=== PATIENT | female | born 1940 | race Caucasian/White ===

== ENCOUNTER 2016-08-05 18:33 | Emergency (ER) | payer OTHER ==
[~2016-08-05] VITALS: Ht 167.6 cm; Wt 88.8 kg
[~2016-08-05 18:33] MED LIST: ACETAMINOPHEN650 M2 PO; AMARYL4 MG PO; ASPIR-LOW81 MG PO; ASPIRIN81 M1 PO; BUMEX1 MG PO; CEPHALEXIN500 MG PO; COLCRYS0.6 MG PO; COUMADIN2 MG PO; CYMBALTA30 MG PO; CYMBALTA60 MG PO; Colchicine,Colcrys PO; DIOVAN HCT 11 TABLET PO; GLIMEPIRIDE4 MG PO; Glucophage PO; JANUVIA100 MG PO; KLOR-CON 1010 ME1 PO; LIDOCAINE700 MG TD; LOVENOX100 MG/1 M SQ; METFORMIN HCL500 M1 PO; METFORMIN HCL500 MG PO; OMEPRAZOLE20 MG PO; POTASSIUM CHLO10 ME3 PO; PRILOSEC20 MG PO; PROMETHAZINE HC25 M1 PO; SPIRIVA1 INHALATI IH; TRAMADOL HCL50 MG PO; TYLENOL WITH C1 EACH PO; WELCHOL625 MG PO; XANAX0.25 MG PO; ZYLOPRIM100 MG PO; predniSONE PO
[2016-08-05 19:41] LABS: MCH 29.6 PG (29.0-34.0); MCHC 32.1 G/DL (30.0-36.0); MCV 92.2 FL (83-99); MEAN PLAT.VOLUME 11.5 uM^3 (9.5-12.4); PLATELET COUNT 259 K/uL (156-360); RBC DIS.WIDTH-CV 16.4 % (11.8-14.6); RBC DIS.WIDTH-SD 52.9 % (39-53); RED BLOOD COUNT 4.12 M/uL (3.80-5.20); WHITE BLOOD COUNT 8.6 K/uL (4.1-10.2)
[2016-08-05 19:49] LABS: CHLORIDE 103 mEq/L (99-109); POTASSIUM 4.5 mEq/L (3.7-5.4); SODIUM 138 mEq/L (136-147)
[2016-08-05 19:51] LABS: GLUCOSE 253 mg/dL (70-99)
[2016-08-05 19:53] LABS: ANION GAP 12 MEQ/L (2-14); TOTAL BILIRUBIN 0.3 mg/dL (0.0-1.0)
[2016-08-05 19:55] LABS: ALKALINE PHOSPHATASE 104 IU/L (3-129); GFR ESTIMATE (CALCULATED) 29 mL/min/
[2016-08-05 19:56] LABS: UREA NITROGEN (BUN) 44 mg/dL (9-23)
[2016-08-05 21:14] LABS: DIRECT BILIRUBIN 0.1 mg/dL (0.0-0.3)
[2016-08-05 21:40] LABS: PROTHROMBIN TIME 20.8 (9.2-11.2); PTT 33.4 (25-32)
[2016-08-06 00:07] LABS: ADD MIUA? YES; BILIRUBIN NEGATIVE; BLOOD NEGATIVE; COLOR YELLOW ((YELLOW)); GLUCOSE (STRIP) NEGATIVE; KETONES NEGATIVE; LEUKOCYTES SMALL; NITRITE NEGATIVE; PROTEIN (STRIP) 30; SPECIFIC GRAVITY 1.017 (1.000-1.030); UROBILINOGEN 0.2 MG/DL (0.2-1.0)
[2016-08-06 00:21] LABS: BACTERIA RARE /HPF; EPITHELIAL CELLS RARE /HPF; HYALINE CASTS 0-5 /LPF; MUCUS TRACE /LPF; RED BLOOD CELLS 0-5 /HPF (0-5); UCUL ADDED? NO
[2016-08-06] MEDS ORDERED: TYLENOL WITH C1 EACH PO (00:44)
[2016-08-06] MEDS ORDERED: ZOFRAN ODT4 MG PO (00:44)
[2016-08-06 01:02] VITALS: BP 149/79
== END 2016-08-06 01:28 | disposition home or self-care (01) ==
LOC: EME 18:33
PROVIDERS: Physician Assistant
DX: R10.11 Right upper quadrant pain (principal); S30.1XXA Contusion of abdominal wall, initial encounter; E11.9 Type 2 diabetes mellitus without complications; E78.5 Hyperlipidemia, unspecified; W06.XXXA Fall from bed, initial encounter; Z79.01 Long term (current) use of anticoagulants; Z95.0 Presence of cardiac pacemaker; Z79.84 Long term (current) use of oral hypoglycemic drugs; Z88.2 Allergy status to sulfonamides; Z88.6 Allergy status to analgesic agent; Z87.891 Personal history of nicotine dependence
CPT/HCPCS: 71250; 74176; 80053; 81003; 82248; 85027; 85610; 85730; 99281; 99285; J2405; J3010

== ENCOUNTER 2017-09-21 16:57 | Inpatient (IN) | payer OTHER ==
[~2017-09-21] VITALS: Ht 167.6 cm; Wt 84.0 kg
[~2017-09-21 16:57] MED LIST changes: +ZOFRAN ODT4 MG PO
[2017-09-21 18:07] LABS: HEMOGLOBIN 12.8 G/DL (11.9-15.5); MCH 30.2 PG (29.0-34.0); MCHC 32.8 G/DL (30.0-36.0); PLATELET COUNT 250 K/uL (156-360); RBC DIS.WIDTH-CV 15.1 % (11.8-14.6); RBC DIS.WIDTH-SD 51.2 % (39-53); RED BLOOD COUNT 4.24 M/uL (3.80-5.20); WHITE BLOOD COUNT 8.4 K/uL (4.1-10.2)
[2017-09-21 18:13] LABS: INTER. NORMALIZED RATIO 2.8
[2017-09-21 18:15] LABS: PTT 35.6 SEC (25-37)
[2017-09-21 18:19] LABS: ALBUMIN 3.8 g/dL (3.2-4.8)
[2017-09-21 18:20] LABS: CHLORIDE 103 mEq/L (99-109); POTASSIUM 5.6 mEq/L (3.7-5.4); SODIUM 137 mEq/L (136-147)
[2017-09-21 18:22] LABS: GLUCOSE 228 mg/dL (70-99); TOTAL PROTEIN 6.5 g/dL (6.4-8.3)
[2017-09-21 18:24] LABS: TOTAL BILIRUBIN 0.3 mg/dL (0.0-1.0)
[2017-09-21 18:25] LABS: ALKALINE PHOSPHATASE 116 IU/L (3-129)
[2017-09-21 18:26] LABS: CREATININE 1.7 mg/dL (0.6-1.3); GFR ESTIMATE (CALCULATED) 31 mL/min/
[2017-09-21 18:27] LABS: AST (GOT) 17 IU/L (2-34); UREA NITROGEN (BUN) 54 mg/dL (9-23)
[2017-09-21 18:28] LABS: ALT (GPT) 16 IU/L (3-49)
[2017-09-21 18:32] LABS: TROP-I INTERPRETATION NEGATIVE; TROPONIN-I 0.05 ng/mL (0.0-0.30)
[2017-09-21] MEDS ORDERED: FLEXERIL10 MG PO (18:34)
[2017-09-21] MEDS ORDERED: LEVAQUIN750 MG PO (18:35)
[2017-09-21 20:25] LABS: APPEARANCE SL.HAZY ((CLEAR)); BILIRUBIN NEGATIVE; BLOOD NEGATIVE; COLOR YELLOW ((YELLOW)); GLUCOSE (STRIP) NEGATIVE; KETONES NEGATIVE; LEUKOCYTES NEGATIVE; NITRITE NEGATIVE; PROTEIN (STRIP) 100; SPECIFIC GRAVITY 1.016 (1.000-1.030); UROBILINOGEN 0.2 MG/DL (0.2-1.0)
[2017-09-21 20:37] LABS: BACTERIA RARE /HPF; EPITHELIAL CELLS RARE /HPF; MUCUS TRACE /LPF; RED BLOOD CELLS NONE SEEN /HPF (0-5); UCUL ADDED? NO; WHITE BLOOD CELLS 0-5 /HPF (0-5)
[2017-09-21] MEDS ORDERED: ALPRAZOLAM0.25 M2 PO (22:27)
[2017-09-21] MEDS ORDERED: ACETAMINOPHEN-1 EAC1 PO (22:29)
[2017-09-21] MEDS ORDERED: TYLENOL EXTRA500 MG PO (22:30)
[2017-09-21] MEDS ORDERED: HYDROCHLOROTH12.5 M3 PO (22:32)
[2017-09-21] MEDS ORDERED: METOPROLOL TART25 MG PO (22:32)
[2017-09-21] MEDS ORDERED: DULERA 200 MCG/13 GM IH (22:33)
[2017-09-21] MEDS ORDERED: DIOVAN80 MG PO (22:33)
[2017-09-21] MEDS ORDERED: LEVEMIR FL100 UNIT/1 SC (22:36)
[2017-09-22] VITALS (7 sets, daily range): BP systolic 138–195; BP diastolic 70–82
[2017-09-22 05:17] LABS: HEMATOCRIT 34.3 % (36.0-46.0); HEMOGLOBIN 10.9 G/DL (11.9-15.5); MCH 29.4 PG (29.0-34.0); MCHC 31.8 G/DL (30.0-36.0); MCV 92.5 FL (83-99); PLATELET COUNT 213 K/uL (156-360); RBC DIS.WIDTH-CV 15.1 % (11.8-14.6); RBC DIS.WIDTH-SD 51.8 % (39-53); RED BLOOD COUNT 3.71 M/uL (3.80-5.20); WHITE BLOOD COUNT 7.8 K/uL (4.1-10.2)
[2017-09-22 05:32] LABS: INTER. NORMALIZED RATIO 2.7
[2017-09-22 05:37] LABS: CHLORIDE 104 MEQ/L (99-109); CREATININE 1.5 MG/DL (0.6-1.3); GFR ESTIMATE (CALCULATED) 36 mL/min/; GLUCOSE 236 mg/dL (70-99); SODIUM 135 MEQ/L (136-147); UREA NITROGEN (BUN) 49 mg/dL (9-23)
[2017-09-22] MEDS ORDERED: DIOVAN320 MG PO (13:17)
== END 2017-09-22 18:42 | disposition home or self-care (01) | DRG 309 ==
LOC: EME 16:57 → EDOF 23:09 → 4EAST 23:09 → ENRESERV 23:12 → 4EAST 09-22 01:06
PROVIDERS: Emergency Medicine Emergency Medical Services; Hospitalist
DX: I48.1 Persistent atrial fibrillation (principal); I50.32 Chronic diastolic (congestive) heart failure; S39.012A Strain of muscle, fascia and tendon of lower back, initial encounter; E11.22 Type 2 diabetes mellitus with diabetic chronic kidney disease; E11.42 Type 2 diabetes mellitus with diabetic polyneuropathy; Z95.0 Presence of cardiac pacemaker; I13.0 Hypertensive heart and chronic kidney disease with heart failure and stage 1 through stage 4 chronic kidney disease, or unspecified chronic kidney disease; E87.5 Hyperkalemia; I09.9 Rheumatic heart disease, unspecified; I49.5 Sick sinus syndrome; I49.3 Ventricular premature depolarization; M10.9 Gout, unspecified; G47.30 Sleep apnea, unspecified; E78.5 Hyperlipidemia, unspecified; M46.90 Unspecified inflammatory spondylopathy, site unspecified; Z79.4 Long term (current) use of insulin; Z79.899 Other long term (current) drug therapy; Z82.3 Family history of stroke; Z87.891 Personal history of nicotine dependence; Z90.710 Acquired absence of both cervix and uterus; Z95.2 Presence of prosthetic heart valve; Z79.01 Long term (current) use of anticoagulants; Z90.49 Acquired absence of other specified parts of digestive tract; Z74.01 Bed confinement status; J43.9 Emphysema, unspecified; K21.9 Gastro-esophageal reflux disease without esophagitis; N18.3 Chronic kidney disease, stage 3 (moderate)
CPT/HCPCS: 71045; 72100; 80048; 80053; 81003; 82948; 84484; 85027; 85610; 85730; 86850; 86900; 86901; 93005; 94640; 99281; 99285; J0360; J1815; J3475; J7040

== ENCOUNTER 2017-10-31 08:20 | Emergency (ER) | payer OTHER ==
[~2017-10-31] VITALS: Ht 168.9 cm; Wt 79.1 kg
[~2017-10-31 08:20] MED LIST changes: +ACETAMINOPHEN-1 EAC1 PO; +ALPRAZOLAM0.25 M2 PO; +DIOVAN320 MG PO; +DIOVAN80 MG PO; +DULERA 200 MCG/13 GM IH; +FLEXERIL10 MG PO; +HYDROCHLOROTH12.5 M3 PO; +LEVAQUIN750 MG PO; +LEVEMIR FL100 UNIT/1 SC; +METOPROLOL TART25 MG PO; +TYLENOL EXTRA500 MG PO
[2017-10-31 09:53] LABS: BASOPHIL (%) 0.5 % (0-1); BASOPHIL COUNT 0.1 K/uL (0-0.1); EOSINOPHIL (%) 1.4 % (0-5); EOSINOPHIL COUNT 0.2 K/uL (0-0.3); HEMATOCRIT 38.9 % (36.0-46.0); IMMATURE GRANULOCYTE (%) 0.6 % (0.0-0.7); LYMPHOCYTE (%) 8.1 % (15-42); LYMPHOCYTE COUNT 0.9 K/uL (1.0-2.8); MCH 29.9 PG (29.0-34.0); MCHC 33.4 G/DL (30.0-36.0); MCV 89.4 FL (83-99); MONOCYTE (%) 9.3 % (3-12); NEUTROPHIL (%) 80.1 % (45-76); NEUTROPHIL COUNT 8.5 K/uL (1.8-6.4); PLATELET COUNT 210 K/uL (156-360); RBC DIS.WIDTH-CV 15.4 % (11.8-14.6); RBC DIS.WIDTH-SD 50.4 % (39-53); RED BLOOD COUNT 4.35 M/uL (3.80-5.20); WHITE BLOOD COUNT 10.6 K/uL (4.1-10.2)
[2017-10-31 10:05] LABS: CHLORIDE 100 mEq/L (99-109); POTASSIUM 4.1 mEq/L (3.7-5.4); SODIUM 139 mEq/L (136-147)
[2017-10-31 10:07] LABS: GLUCOSE 266 mg/dL (70-99)
[2017-10-31 10:11] LABS: CREATININE 1.6 mg/dL (0.6-1.3); GFR ESTIMATE (CALCULATED) 33 mL/min/
[2017-10-31 10:12] LABS: UREA NITROGEN (BUN) 33 mg/dL (9-23)
[2017-10-31] MEDS ORDERED: ZOFRAN4 MG PO (13:26)
[2017-10-31] MEDS ORDERED: CITRATE OF MAG296 ML PO (13:26)
[2017-10-31 14:15] VITALS: BP 184/81
== END 2017-10-31 14:15 | disposition home or self-care (01) ==
LOC: EME 08:20
PROVIDERS: Emergency Medicine
DX: K59.00 Constipation, unspecified (principal); R10.9 Unspecified abdominal pain; G89.29 Other chronic pain; E78.5 Hyperlipidemia, unspecified; F41.9 Anxiety disorder, unspecified; I11.0 Hypertensive heart disease with heart failure; I50.9 Heart failure, unspecified; J44.9 Chronic obstructive pulmonary disease, unspecified; K21.9 Gastro-esophageal reflux disease without esophagitis; E11.42 Type 2 diabetes mellitus with diabetic polyneuropathy; Z95.0 Presence of cardiac pacemaker; Z95.2 Presence of prosthetic heart valve; Z88.2 Allergy status to sulfonamides; Z87.891 Personal history of nicotine dependence; Z88.8 Allergy status to other drugs, medicaments and biological substances; Z79.4 Long term (current) use of insulin
CPT/HCPCS: 74019; 80048; 85025; 99281; 99285

== ENCOUNTER 2017-12-04 15:49 | Inpatient (IN) | payer OTHER ==
[~2017-12-04] VITALS: Ht 200.7 cm; Wt 79.9 kg
[~2017-12-04 15:49] MED LIST changes: +CITRATE OF MAG296 ML PO; +ZOFRAN4 MG PO
[2017-12-04 16:37] LABS: HEMATOCRIT 36.8 % (36.0-46.0); HEMOGLOBIN 12.4 G/DL (11.9-15.5); MCH 30.5 PG (29.0-34.0); MCHC 33.7 G/DL (30.0-36.0); MCV 90.4 FL (83-99); PLATELET COUNT 224 K/uL (156-360); RBC DIS.WIDTH-CV 15.9 % (11.8-14.6); RBC DIS.WIDTH-SD 52.4 % (39-53); RED BLOOD COUNT 4.07 M/uL (3.80-5.20); WHITE BLOOD COUNT 8.1 K/uL (4.1-10.2)
[2017-12-04 16:43] LABS: INTER. NORMALIZED RATIO 3.8
[2017-12-04 16:45] LABS: ALBUMIN 3.7 g/dL (3.2-4.8); CHLORIDE 99 mEq/L (99-109); POTASSIUM 4.6 mEq/L (3.7-5.4); PTT 44.1 SEC (25-37); SODIUM 136 mEq/L (136-147)
[2017-12-04 16:47] LABS: GLUCOSE 341 mg/dL (70-99); TOTAL PROTEIN 6.7 g/dL (6.4-8.3)
[2017-12-04 16:49] LABS: TOTAL BILIRUBIN 0.6 mg/dL (0.0-1.0)
[2017-12-04 16:51] LABS: ALKALINE PHOSPHATASE 115 IU/L (3-129); CREATININE 1.9 mg/dL (0.6-1.3); GFR ESTIMATE (CALCULATED) 27 mL/min/
[2017-12-04 16:52] LABS: UREA NITROGEN (BUN) 44 mg/dL (9-23)
[2017-12-04 16:53] LABS: AST (GOT) 19 IU/L (2-34)
[2017-12-04 16:54] LABS: ALT (GPT) 15 IU/L (3-49); LIPASE 19 U/L (1.0-51.0)
[2017-12-04 17:51] LABS: APPEARANCE SL.HAZY ((CLEAR)); BILIRUBIN NEGATIVE; BLOOD NEGATIVE; COLOR YELLOW ((YELLOW)); GLUCOSE (STRIP) 150; KETONES NEGATIVE; LEUKOCYTES TRACE; NITRITE NEGATIVE; PROTEIN (STRIP) 100; SPECIFIC GRAVITY 1.016 (1.000-1.030); UROBILINOGEN 0.2 MG/DL (0.2-1.0)
[2017-12-04 17:58] LABS: BACTERIA RARE /HPF; EPITHELIAL CELLS 1+ /HPF; MUCUS TRACE /LPF; RED BLOOD CELLS NONE SEEN /HPF (0-5); UCUL ADDED? NO; WHITE BLOOD CELLS 0-5 /HPF (0-5)
[2017-12-04] MEDS ORDERED: DIOVAN320 MG PO (20:01)
[2017-12-04] MEDS ORDERED: ULTRAM50 MG PO (20:02)
[2017-12-04] MEDS ORDERED: METAMUCIL0.4 GM PO (20:03)
[2017-12-04 22:35] VITALS: BP 185/74
[2017-12-05] VITALS (7 sets, daily range): BP systolic 139–171; BP diastolic 62–74
[2017-12-05 00:40] LABS: HEMATOCRIT 32.3 % (36.0-46.0); HEMOGLOBIN 10.5 G/DL (11.9-15.5); MCV 92.8 FL (83-99)
[2017-12-05 06:50] LABS: HEMOGLOBIN 10.1 G/DL (11.9-15.5); MCH 28.9 PG (29.0-34.0); MCHC 31.6 G/DL (30.0-36.0); MCV 91.7 FL (83-99); PLATELET COUNT 175 K/uL (156-360); RBC DIS.WIDTH-CV 15.9 % (11.8-14.6); RBC DIS.WIDTH-SD 53.1 % (39-53); RED BLOOD COUNT 3.49 M/uL (3.80-5.20); WHITE BLOOD COUNT 6.1 K/uL (4.1-10.2)
[2017-12-05 06:56] LABS: INTER. NORMALIZED RATIO 3.5
[2017-12-05 07:19] LABS: PTT 157.1 SEC (25-37)
[2017-12-05 09:39] LABS: CHLORIDE 105 MEQ/L (99-109); CREATININE 1.5 MG/DL (0.6-1.3); GFR ESTIMATE (CALCULATED) 36 mL/min/; GLUCOSE 200 mg/dL (70-99); POTASSIUM 5.6 MEQ/L (3.7-5.4); SODIUM 138 MEQ/L (136-147); UREA NITROGEN (BUN) 36 mg/dL (9-23)
[2017-12-05 13:04] LABS: HEMATOCRIT 34.7 % (36.0-46.0); HEMOGLOBIN 11.2 G/DL (11.9-15.5); MCV 91.8 FL (83-99)
[2017-12-05 13:10] LABS: INTER. NORMALIZED RATIO 2.9
[2017-12-05 13:38] LABS: PTT 38.1 SEC (25-37)
[2017-12-05 17:47] LABS: HEMATOCRIT 34.6 % (36.0-46.0); MCV 90.8 FL (83-99)
[2017-12-06 03:55] VITALS: BP 174/75
[2017-12-06 07:33] VITALS: BP 181/81
[2017-12-06 12:19] VITALS: BP 178/75
[2017-12-06 13:59] LABS: INTER. NORMALIZED RATIO 2.6
[2017-12-06 14:08] LABS: PTT 77.9 SEC (25-37)
[2017-12-06 16:36] VITALS: BP 167/74
[2017-12-06 18:13] VITALS: BP 195/79
[2017-12-06 23:52] VITALS: BP 164/73
[2017-12-07 07:17] LABS: BASOPHIL (%) 0.4 % (0-1); EOSINOPHIL (%) 3.9 % (0-5); EOSINOPHIL COUNT 0.3 K/uL (0-0.3); HEMATOCRIT 31.3 % (36.0-46.0); HEMOGLOBIN 10.5 G/DL (11.9-15.5); IMMATURE GRANULOCYTE (%) 0.6 % (0.0-0.7); LYMPHOCYTE (%) 12.7 % (15-42); LYMPHOCYTE COUNT 0.9 K/uL (1.0-2.8); MCHC 33.5 G/DL (30.0-36.0); MCV 89.4 FL (83-99); MONOCYTE (%) 10.3 % (3-12); MONOCYTE COUNT 0.7 K/uL (0-0.8); NEUTROPHIL (%) 72.1 % (45-76); NEUTROPHIL COUNT 4.8 K/uL (1.8-6.4); PLATELET COUNT 176 K/uL (156-360); RBC DIS.WIDTH-CV 15.9 % (11.8-14.6); WHITE BLOOD COUNT 6.7 K/uL (4.1-10.2)
[2017-12-07 07:39] LABS: INTER. NORMALIZED RATIO 2.1
[2017-12-07 07:40] VITALS: BP 187/111
[2017-12-07 07:41] LABS: PTT 53.9 SEC (25-37)
[2017-12-07 09:52] LABS: ALBUMIN 3.2 G/DL (3.2-4.8); CHLORIDE 100 MEQ/L (99-109); CREATININE 1.3 MG/DL (0.6-1.3); GFR ESTIMATE (CALCULATED) 42 mL/min/; GLUCOSE 180 mg/dL (70-99); PHOSPHORUS 3.5 mg/dL (2.5-4.9); POTASSIUM 3.9 MEQ/L (3.7-5.4); SODIUM 138 MEQ/L (136-147); UREA NITROGEN (BUN) 20 mg/dL (9-23)
[2017-12-07 10:35] VITALS: BP 155/70
[2017-12-07 12:06] LABS: HEMOGLOBIN A1c (GLYCOHEMOGLOB) 9.3 % (Below 5.7)
[2017-12-07 13:00] LABS: PTT 64.1 SEC (25-37)
[2017-12-07 19:32] VITALS: BP 150/65
[2017-12-07 20:26] LABS: INTER. NORMALIZED RATIO 1.8
[2017-12-07 20:33] LABS: PTT 33.1 SEC (25-37)
[2017-12-07 23:14] VITALS: BP 159/65
[2017-12-08 03:08] LABS: BASOPHIL (%) 0.2 % (0-1); EOSINOPHIL (%) 4.6 % (0-5); EOSINOPHIL COUNT 0.3 K/uL (0-0.3); HEMATOCRIT 29.2 % (36.0-46.0); IMMATURE GRANULOCYTE (%) 0.5 % (0.0-0.7); LYMPHOCYTE (%) 16.8 % (15-42); MCH 30.6 PG (29.0-34.0); MCHC 34.2 G/DL (30.0-36.0); MCV 89.3 FL (83-99); MONOCYTE (%) 16.1 % (3-12); MONOCYTE COUNT 0.9 K/uL (0-0.8); NEUTROPHIL (%) 61.8 % (45-76); NEUTROPHIL COUNT 3.6 K/uL (1.8-6.4); PLATELET COUNT 150 K/uL (156-360); RBC DIS.WIDTH-CV 15.9 % (11.8-14.6); RBC DIS.WIDTH-SD 51.6 % (39-53); RED BLOOD COUNT 3.27 M/uL (3.80-5.20); WHITE BLOOD COUNT 5.9 K/uL (4.1-10.2)
[2017-12-08 03:32] LABS: PTT 234.2 SEC (25-37)
[2017-12-08 03:33] LABS: ALBUMIN 2.8 g/dL (3.2-4.8)
[2017-12-08 03:34] LABS: CHLORIDE 103 mEq/L (99-109); POTASSIUM 3.3 mEq/L (3.7-5.4); SODIUM 139 mEq/L (136-147)
[2017-12-08 03:36] LABS: GLUCOSE 181 mg/dL (70-99)
[2017-12-08 03:37] LABS: TOTAL PROTEIN 5.2 g/dL (6.4-8.3)
[2017-12-08 03:38] LABS: TOTAL BILIRUBIN 0.7 mg/dL (0.0-1.0)
[2017-12-08 03:39] LABS: ALKALINE PHOSPHATASE 86 IU/L (3-129)
[2017-12-08 03:40] VITALS: BP 119/57; BP 166/72
[2017-12-08 03:40] LABS: CREATININE 1.5 mg/dL (0.6-1.3); GFR ESTIMATE (CALCULATED) 36 mL/min/
[2017-12-08 03:41] LABS: AST (GOT) 19 IU/L (2-34); UREA NITROGEN (BUN) 19 mg/dL (9-23)
[2017-12-08 03:42] LABS: ALT (GPT) 12 IU/L (3-49)
[2017-12-08 07:24] VITALS: BP 187/82
[2017-12-08 13:45] VITALS: BP 157/68
[2017-12-08 13:46] VITALS: BP 157/60
[2017-12-08 15:33] VITALS: BP 157/66
[2017-12-08 15:52] LABS: INTER. NORMALIZED RATIO 1.6
[2017-12-08 15:57] LABS: PTT 51.7 SEC (25-37)
[2017-12-08 20:13] VITALS: BP 162/80
[2017-12-09] VITALS (7 sets, daily range): BP systolic 139–168; BP diastolic 60–74
[2017-12-09 07:15] LABS: INTER. NORMALIZED RATIO 1.5
[2017-12-09 07:17] LABS: PTT 62.2 SEC (25-37)
[2017-12-09 07:20] LABS: HEMATOCRIT 29.6 % (36.0-46.0); HEMOGLOBIN 9.3 G/DL (11.9-15.5); MCHC 31.4 G/DL (30.0-36.0); PLATELET COUNT 136 K/uL (156-360); RBC DIS.WIDTH-CV 16.5 % (11.8-14.6); RBC DIS.WIDTH-SD 57.1 % (39-53); WHITE BLOOD COUNT 5.5 K/uL (4.1-10.2)
[2017-12-09 07:26] LABS: MCV 95.5 FL (83-99)
[2017-12-09 07:28] LABS: CHLORIDE 105 MEQ/L (99-109); CREATININE 1.4 MG/DL (0.6-1.3); GFR ESTIMATE (CALCULATED) 39 mL/min/; GLUCOSE 208 mg/dL (70-99); POTASSIUM 4.2 MEQ/L (3.7-5.4); SODIUM 137 MEQ/L (136-147); UREA NITROGEN (BUN) 20 mg/dL (9-23)
[2017-12-09] MEDS ORDERED: LOVENOX80 MG/0.8 SC (14:03)
[2017-12-10 03:56] VITALS: BP 149/72
[2017-12-10 06:05] LABS: HEMATOCRIT 30.6 % (36.0-46.0); HEMOGLOBIN 9.8 G/DL (11.9-15.5); MCV 93.6 FL (83-99); PLATELET COUNT 164 K/uL (156-360); RBC DIS.WIDTH-CV 16.4 % (11.8-14.6); RBC DIS.WIDTH-SD 56.1 % (39-53); RED BLOOD COUNT 3.27 M/uL (3.80-5.20); WHITE BLOOD COUNT 7.1 K/uL (4.1-10.2)
[2017-12-10 06:14] LABS: INTER. NORMALIZED RATIO 1.6
[2017-12-10 06:18] LABS: PTT 34.6 SEC (25-37)
[2017-12-10 06:34] LABS: CHLORIDE 100 MEQ/L (99-109); CREATININE 1.6 MG/DL (0.6-1.3); GFR ESTIMATE (CALCULATED) 33 mL/min/; GLUCOSE 153 mg/dL (70-99); POTASSIUM 4.7 MEQ/L (3.7-5.4); SODIUM 136 MEQ/L (136-147); UREA NITROGEN (BUN) 26 mg/dL (9-23)
[2017-12-10 07:21] VITALS: BP 149/64
[2017-12-10] MEDS ORDERED: LOVENOX80 MG/0.8 SC (11:26)
[2017-12-10] MEDS ORDERED: ANUCORT-HC25 MG PR (11:26)
[2017-12-10] MEDS ORDERED: COUMADIN3 MG PO (11:26)
[2017-12-10 11:31] VITALS: BP 144/67
== END 2017-12-10 13:42 | disposition home health service (06) | DRG 394 ==
LOC: EME 15:49 → EDOF 21:13 → 4SOUTH 21:13 → EDOF 21:13 → ENRESERV 21:18 → 4SOUTH 22:19 → 2EAST 12-05 13:16 → 4SOUTH 12-05 13:16 → ENRESERV 12-06 11:35 → 2EAST 12-06 18:01
PROVIDERS: Hospitalist; Internal Medicine; Internal Medicine Gastroenterology; Nurse Practitioner Adult Health; Physician Assistant; Physician Assistant Medical
PROC: 0DBN8ZX Excision of Sigmoid Colon, Via Natural or Artificial Opening Endoscopic, Diagnostic (ICD-10-PCS; principal; 2017-12-07)
DX: K64.8 Other hemorrhoids (principal); K64.4 Residual hemorrhoidal skin tags; I13.0 Hypertensive heart and chronic kidney disease with heart failure and stage 1 through stage 4 chronic kidney disease, or unspecified chronic kidney disease; E11.42 Type 2 diabetes mellitus with diabetic polyneuropathy; E11.22 Type 2 diabetes mellitus with diabetic chronic kidney disease; N18.4 Chronic kidney disease, stage 4 (severe); E87.5 Hyperkalemia; J43.9 Emphysema, unspecified; I48.2 Chronic atrial fibrillation; N17.9 Acute kidney failure, unspecified; I48.0 Paroxysmal atrial fibrillation; I27.20 Pulmonary hypertension, unspecified; M10.9 Gout, unspecified; Z95.2 Presence of prosthetic heart valve; Z79.4 Long term (current) use of insulin; Z79.01 Long term (current) use of anticoagulants; D12.5 Benign neoplasm of sigmoid colon; E87.6 Hypokalemia; Z95.0 Presence of cardiac pacemaker; M54.5 Low back pain; G47.33 Obstructive sleep apnea (adult) (pediatric); Z83.3 Family history of diabetes mellitus; Z86.711 Personal history of pulmonary embolism; K59.03 Drug induced constipation; T40.2X5A Adverse effect of other opioids, initial encounter; Z87.891 Personal history of nicotine dependence; E78.5 Hyperlipidemia, unspecified; K21.9 Gastro-esophageal reflux disease without esophagitis; D64.9 Anemia, unspecified; K57.30 Diverticulosis of large intestine without perforation or abscess without bleeding; I50.9 Heart failure, unspecified; R79.1 Abnormal coagulation profile
CPT/HCPCS: 74176; 80048; 80053; 80069; 81003; 82948; 83036; 83605; 83690; 84132 91; 85014; 85018; 85025; 85027; 85610; 85730; 86850; 86900; 86901; 87040; 88305; 93005; 94640; 99281; 99285; G0378; J0290; J0360; J1650; J1815; J2405; J7040; J7050